=== PATIENT | male | born 1965 | race Caucasian/White ===

== ENCOUNTER → 2023-05-30 | Outpatient (CLI) | payer BC, SELFPAY ==
[2023-05-30 12:34] LABS: Absolute Lymphocyte Count 2.02 X10^3/uL (0.83-4.51); Absolute Neutrophil Count 4.6 X10^3/uL (2.0-7.7); Basophil# 0.04 X10^3/uL; Basophil% 0.5 % (0-1); Eosinophil# 0.08 X10^3/uL; Eosinophils% 1.1 % (0-5); Hematocrit 47.1 % (40-54); Hemoglobin 15.3 g/dL (13.0-16.5); Lymphocyte # 2.02 X10^3/ul (0.83-4.51); Lymphocyte % 27.6 % (19-41); Mean Corp Hgb Conc 32.5 g/dL (32-36); Mean Corpuscular Hgb 31.7 pg (27.0-32.0); Mean Corpuscular Volume 97.5 fL (80-94); Mean Platelet Vol. 10.5 fl (6.2-12.0); Monocyte# 0.55 X10^3/uL; Monocyte% 7.5 % (0-10); NRBC Flagged by Analyzer 0 % (0-5); Neutrophil # 4.62 X10^3/uL (2.7-7.7); Platelet Count 255 K/mm3 (150-450); RBC Distribution Width CV 12.8 % (11.6-14.6); RBC Distribution Width SD 45.5 fl (35.1-43.9); Red Blood Count 4.83 M/mm3 (4.6-6.2); White Blood Count 7.3 K/mm3 (4.4-11.0)
[2023-05-30 13:00] LABS: Vitamin B12 216 pg/mL (211-911); Vitamin D,25 Hydroxy 22.6 ng/mL
[2023-05-30 14:20] LABS: ALB/GLOB Ratio 0.9 RATIO (0.9-2.4); AST(SGOT) 17 U/L (15-37); Alanine Aminotransfer ALT/SGPT 21 U/L (16-61); Albumin, Serum 3.3 g/dL (3.2-5.0); Alkaline Phosphatase 75 U/L (45-117); Anion Gap 5 (5-15); BUN 18 mg/dL (7-18); BUN/Creat Ratio 14.9 RATIO (10-20); Calcium,Total 8.8 mg/dL (8.5-10.1); Chloride 111 mmol/L (98-107); Creatinine, Serum 1.21 mg/dL (0.70-1.30); EST Glomerular Filtration Rate 66 mL/min (>60); Est Glom Filt Rate - Afr Amer 80 mL/min (>60); Ferritin 125 ng/mL (26-388); Globulin 3.7 g/dL (2.2-4.2); Glucose 97 mg/dL (74-106); Iron 39 ug/dL (65-175); Magnesium 2.4 mg/dL (1.6-2.6); Potassium 3.9 mmol/L (3.5-5.1); Sodium Level 142 mmol/L (136-145); T4 Free Direct 0.99 ng/dL (0.76-1.46); Thyroid Stim Hormone (TSH) 0.75 uIU/mL (0.358-3.74)
== END | disposition home or self-care (01) ==
PROVIDERS: PCP Nurse Practitioner Family; Referring Provider Nurse Practitioner Family; Visit Provider Nurse Practitioner Family
DX: Z00.01 Encounter for general adult medical examination with abnormal findings (principal); R00.2 Palpitations; R53.83 Other fatigue; R42 Dizziness and giddiness
CPT/HCPCS: 36415; 80053; 82306; 82607; 82728; 83540; 83735; 84439; 84443; 85025

== ENCOUNTER → 2023-06-01 | Outpatient (CLI) | payer BC, SELFPAY ==
[2023-06-01 15:45] LABS: Cholesterol 172 mg/dL (200); High Density Lipoprotein 53 mg/dL; Triglycerides 98 mg/dL; Very Low Density Lipoprotein 20 mg/dL (5-40)
== END | disposition home or self-care (01) ==
LOC: LABSPEC 14:59
PROVIDERS: PCP Nurse Practitioner Family; Referring Provider Nurse Practitioner Family; Visit Provider Nurse Practitioner Family
DX: Z00.01 Encounter for general adult medical examination with abnormal findings (principal); R00.2 Palpitations
CPT/HCPCS: 80061